=== PATIENT | female | born 1995 | race African-American/Black ===

== ENCOUNTER 2019-07-26 07:13 | Emergency (ER) | payer BC, MEDICAID ==
[~2019-07-26] VITALS: Ht 170.2 cm; Wt 130.0 kg
[~2019-07-26 07:13] MED LIST: ALBU05; PRO AIR
[2019-07-26 07:37] VITALS: BP 140/78
[2019-07-26 08:07] LABS: CLARITY URINE CLOUDY (CLEAR); COLOR URINE RED (YELLOW); KETONES URINE NEGATIVE (NEGATIVE); LEUKOCYTE ESTERASE URINE 1+ (NEGATIVE); NITRITE URINE NEGATIVE (NEGATIVE); OCCULT BLOOD URINE 3+ (NEGATIVE); PH URINE 5.5 (4.5-8.0); PROTEIN URINE 1+ (NEGATIVE); SPECIFIC GRAVITY URINE 1.017 (1.005-1.030)
[2019-07-26] MEDS ORDERED: AZITHROMYCIN 500 MG TABLET PO SCH (08:30)
[2019-07-26] MEDS ORDERED: CEFTRIAXONE SODIUM 250 MG/VIAL IM SCH (08:30)
[2019-07-26] MEDS ORDERED: LIDOCAINE HCL 1% 20ML VIAL (Pyxis) INJ INFIL ONE (08:45)
[2019-07-28 04:06] LABS: NEISSERIA GONORRHOEAE NAA Negative (Negative)
== END 2019-07-26 09:10 | disposition home or self-care (01) ==
LOC: ER 07:13
DX: Z20.2 Contact with and (suspected) exposure to infections with a predominantly sexual mode of transmission (principal); N30.90 Cystitis, unspecified without hematuria; D57.1 Sickle-cell disease without crisis; J45.909 Unspecified asthma, uncomplicated
CPT/HCPCS: 81003; 87491; 87591; 96372; 99283; J0696; J3490

== ENCOUNTER 2019-08-25 06:39 | Emergency (ER) | payer BC ==
[~2019-08-25] VITALS: Ht 167.6 cm; Wt 116.0 kg
[2019-08-25] MEDS ORDERED: SODIUM CHLORIDE 0.9% 1,000 ML IV ONE ×2 (08:01→09:37)
[2019-08-25] MEDS ORDERED: ONDANSETRON HCL 4MG/2ML INJ IV STA (08:01)
[2019-08-25] MEDS ORDERED: MORPHINE SULFATE 4 MG/ML CPJ (NOT FOR IM USE) IV STA ×2 (08:01→09:37)
[2019-08-25] MEDS ORDERED: KETOROLAC 30MG/ML VIAL IV ONE (08:15)
[2019-08-25 08:54] LABS: BASOPHILS % 0.4 % (0.0-2.0); EOSINOPHILS % 3.7 % (0.0-5.0); HEMATOCRIT. 32.1 % (36.0-48.0); HEMOGLOBIN. 10.2 g/dL (12.0-16.0); LYMPHOCYTES % 33.9 % (20.0-50.0); MEAN CORPUSCULAR HEMOGLOBIN 20.7 pg (28.0-32.0); MEAN PLATELET VOLUME 6.9 fl (7.4-10.4); MONOCYTES % 9.5 % (2.0-8.0); NEUTROPHILS % 52.5 % (40.0-76.0); PLATELET 440 x1000/uL (130-400); RED BLOOD CELL COUNT 4.94 mill/uL (4.2-5.4); RED CELL DISTRIBUTION WIDTH 19.7 % (11.6-14.6)
[2019-08-25 08:59] LABS: CHLORIDE 107 mEq/L (98-107)
[2019-08-25 09:03] LABS: INR 1.1; PROTHROMBIN TIME 11.4 sec (9.6-11.0)
[2019-08-25 09:09] LABS: HCG SCREEN NEGATIVE
[2019-08-25 09:11] LABS: CLARITY URINE CLOUDY (CLEAR); COLOR URINE YELLOW (YELLOW); KETONES URINE NEGATIVE (NEGATIVE); LEUKOCYTE ESTERASE URINE 3+ (NEGATIVE); NITRITE URINE NEGATIVE (NEGATIVE); OCCULT BLOOD URINE NEGATIVE (NEGATIVE); PH URINE 5.5 (4.5-8.0); PROTEIN URINE NEGATIVE (NEGATIVE); SPECIFIC GRAVITY URINE 1.019 (1.005-1.030)
[2019-08-25] MEDS ORDERED: POTASSIUM CHLORIDE 20MEQ TABLET SR PO ONE (09:15)
[2019-08-25] MEDS ORDERED: CEFTRIAXONE 1 G PREMIX 50 ML IV ONE (09:30)
[2019-08-25 10:25] LABS: PLATELET ESTIMATE SLIGHTLY INCREASED
[2019-08-25 11:17] VITALS: BP 112/60
== END 2019-08-25 11:18 | disposition home or self-care (01) ==
LOC: ER 06:39
DX: N12 Tubulo-interstitial nephritis, not specified as acute or chronic (principal); D57.00 Hb-SS disease with crisis, unspecified; D50.9 Iron deficiency anemia, unspecified; J45.909 Unspecified asthma, uncomplicated
CPT/HCPCS: 36415; 80053; 81003; 81025; 84703; 85025; 85044; 85610; 87086; 96365; 96375; 96376; 99284; J0696; J1885; J2270; J2405; J7030

== ENCOUNTER 2020-02-11 21:09 | Inpatient (IN) | payer BC ==
[~2020-02-11] VITALS: Ht 170.2 cm; Wt 132.4 kg
[2020-02-11] MEDS ORDERED: ALBUTEROL (0.083%) 2.5MG/3ML NEB HHN STA (23:10)
[2020-02-11] MEDS ORDERED: IPRATROPIUM BROMIDE (0.02%) 0.5MG/2.5ML NEB HHN STA (23:10)
[2020-02-11] MEDS ORDERED: PREDNISONE 20MG TABLET PO STA (23:10)
[2020-02-11] MEDS ORDERED: ACETAMINOPHEN 325MG TABLET PO ONE (23:15)
[2020-02-12] MEDS ORDERED: DEXAMETHASONE 4MG/ML 1ML VIAL IV SCH (00:15)
[2020-02-12] MEDS ORDERED: CEFTRIAXONE 1 G PREMIX 50 ML IV ONE (00:15)
[2020-02-12] MEDS ORDERED: CEFTRIAXONE 1,000 MG in DEXTROSE 5% WATER 50 ML IV SCH (00:30)
[2020-02-12] MEDS ORDERED: CEFTRIAXONE SODIUM 1 G/VIAL ONE (01:13)
[2020-02-12 01:27] LABS: BASOPHILS % 0.2 % (0.0-2.0); HEMATOCRIT. 34.4 % (36.0-48.0); HEMOGLOBIN. 11.2 g/dL (12.0-16.0); LYMPHOCYTES % 18.6 % (20.0-50.0); MEAN CORPUSCULAR HEMOGLOBIN 19.6 pg (28.0-32.0); MEAN CORPUSCULAR VOLUME 60.2 fL (81.0-99.0); MEAN PLATELET VOLUME 8.6 fl (7.4-10.4); MONOCYTES % 7.5 % (2.0-8.0); NEUTROPHILS % 73.7 % (40.0-76.0); PLATELET 410 x1000/uL (130-400); RED BLOOD CELL COUNT 5.72 mill/uL (4.2-5.4); RED CELL DISTRIBUTION WIDTH 20.5 % (11.6-14.6)
[2020-02-12 01:36] LABS: CHLORIDE 101 mEq/L (98-107)
[2020-02-12 02:14] LABS: HCG SCREEN NEGATIVE
[2020-02-12] MEDS ORDERED: ALBUTEROL (0.083%) 2.5MG/3ML NEB HHN SCH (02:23)
[2020-02-12] MEDS ORDERED: IPRATROPIUM BROMIDE (0.02%) 0.5MG/2.5ML NEB HHN SCH (02:23)
[2020-02-12] MEDS ORDERED: MORPHINE SULFATE 4 MG/ML CPJ (NOT FOR IM USE) IV ONE (03:30)
[2020-02-12] MEDS ORDERED: MAGNESIUM/ALUMINUM HYDROXIDE/SIMETHICONE 30ML UDC PO PRN (04:00)
[2020-02-12] MEDS ORDERED: DOCUSATE SODIUM 100MG CAPSULE PO PRN (04:00)
[2020-02-12] MEDS ORDERED: CLONIDINE 0.1MG TABLET PO PRN (04:00)
[2020-02-12] MEDS ORDERED: ONDANSETRON HCL 4MG/2ML INJ IV PRN (04:00)
[2020-02-12] MEDS: GUAIFENESIN 200MG/10ML SUGAR FREE UDC PO PRN ×2 (04:36→14:05)
[2020-02-12] MEDS ORDERED: AZITHROMYCIN 500 MG in DEXT 5% WATER 250 ML IV SCH (05:00)
[2020-02-12 07:00] LABS: INR 1.1; PROTHROMBIN TIME 11.7 sec (9.6-11.0)
[2020-02-12 08:41] LABS: CLARITY URINE TURBID (CLEAR); COLOR URINE YELLOW (YELLOW); KETONES URINE TRACE (NEGATIVE); LEUKOCYTE ESTERASE URINE 1+ (NEGATIVE); NITRITE URINE NEGATIVE (NEGATIVE); OCCULT BLOOD URINE NEGATIVE (NEGATIVE); PROTEIN URINE TRACE (NEGATIVE); SPECIFIC GRAVITY URINE 1.021 (1.005-1.030)
[2020-02-12 08:56] LABS: PLATELET ESTIMATE SLIGHTLY INCREASED
[2020-02-12] MEDS: AMLODIPINE 10MG TABLET PO SCH (09:00)
[2020-02-12] MEDS: ENOXAPARIN 100MG/ML SYR SUBCUT SCH ×2 (09:40→23:00)
[2020-02-12] MEDS: ACETAMINOPHEN 325MG TABLET PO PRN (09:40)
[2020-02-12 16:53] LABS: BG BASE EXCESS 0.7 mmol/L (-2.0-2.0); BG CARBOXYHEMOGLOBIN 0.3 % (0.5-1.5); BG DEOXYHEMOGLOBIN 4.3 % (0.0-5.0); BG FRACTION INSPIRED OXYGEN 99.8; BG HCO3 ACT 25.3 mmol/L (22.0-26.0); BG METHEMOGLOBIN 0.3 % (0.0-1.5); BG OXYGEN SATURATION 95.7 % (92.0-98.5); BG OXYHEMOGLOBIN 95.1 % (94.0-97.0); BG PCO2 40.3 mmHg (35.0-45.0); BG PH 7.415 (7.350-7.450); BG PO2 84.3 mmHg (75.0-100.0); BG SAMPLE SITE RIGHT RADIAL; BG TOTAL HEMOGLOBIN 11.3 g/dL (12.0-18.0); BG VENT MODE MASK - NRB
[2020-02-12] MEDS: DEXAMETHASONE 10 MG/ML VIAL IV SCH (18:30)
[2020-02-12] MEDS: KETOROLAC 15MG/ML VIAL IV PRN (18:31)
[2020-02-12] MEDS ORDERED: CEFTRIAXONE 1 G PREMIX 50 ML IV SCH (21:00)
[2020-02-12] MEDS: ALBUTEROL 6.7GM HFA INHALER ORI SCH (21:06)
[2020-02-12] MEDS: GUAIFENESIN-DM 200MG-20MG/10ML UDC PO PRN (21:15)
[2020-02-13] VITALS (7 sets, daily range): BP systolic 115–128; BP diastolic 73–84
[2020-02-13] MEDS: GUAIFENESIN-DM 200MG-20MG/10ML UDC PO PRN ×3 (01:12→21:14)
[2020-02-13] MEDS: ALBUTEROL 6.7GM HFA INHALER ORI SCH ×4 (05:31→20:08)
[2020-02-13] MEDS ORDERED: AZITHROMYCIN 500 MG in DEXT 5% WATER 250 ML IV SCH (06:00)
[2020-02-13 07:46] LABS: CHLORIDE 100 mEq/L (98-107)
[2020-02-13] MEDS: AZITHROMYCIN 500 MG in DEXT 5% WATER 250 ML IV SCH (09:26)
[2020-02-13] MEDS: ENOXAPARIN 100MG/ML SYR SUBCUT SCH ×2 (09:27→21:00)
[2020-02-13] MEDS: DEXAMETHASONE 10 MG/ML VIAL IV SCH (09:27)
[2020-02-13] MEDS: KETOROLAC 15MG/ML VIAL IV PRN ×2 (09:27→23:59)
[2020-02-13] MEDS: AMLODIPINE 10MG TABLET PO SCH (09:28)
[2020-02-13] MEDS: ACETAMINOPHEN 325MG TABLET PO PRN (14:06)
[2020-02-13] MEDS: CEFTRIAXONE 1,000 MG in DEXTROSE 5% WATER 50 ML IV SCH (21:00)
[2020-02-14 00:26] VITALS: BP 110/70
[2020-02-14 04:00] VITALS: BP 130/83
[2020-02-14] MEDS: ALBUTEROL 6.7GM HFA INHALER ORI SCH ×4 (04:02→22:00)
[2020-02-14] MEDS: KETOROLAC 15MG/ML VIAL IV PRN ×3 (06:55→21:24)
[2020-02-14 08:00] VITALS: BP 110/63
[2020-02-14] MEDS: GUAIFENESIN-DM 200MG-20MG/10ML UDC PO PRN ×4 (08:38→21:24)
[2020-02-14] MEDS: AZITHROMYCIN 500 MG in DEXT 5% WATER 250 ML IV SCH (08:38)
[2020-02-14] MEDS: ENOXAPARIN 100MG/ML SYR SUBCUT SCH (08:38)
[2020-02-14] MEDS: DEXAMETHASONE 10 MG/ML VIAL IV SCH (08:39)
[2020-02-14] MEDS: AMLODIPINE 10MG TABLET PO SCH (08:39)
[2020-02-14 12:00] VITALS: BP 89/64
[2020-02-14 16:00] VITALS: BP 108/68
[2020-02-14] MEDS ORDERED: ENOXAPARIN 150MG/ML SYR SUBCUT SCH (16:52)
[2020-02-14 20:00] VITALS: BP 94/53
[2020-02-14] MEDS: CEFTRIAXONE 1,000 MG in DEXTROSE 5% WATER 50 ML IV SCH (21:20)
[2020-02-14] MEDS: ENOXAPARIN 150MG/ML SYR SUBCUT SCH (21:25)
[2020-02-15] VITALS: BP 134/69
[2020-02-15 04:00] VITALS: BP 107/67
[2020-02-15] MEDS: ALBUTEROL 6.7GM HFA INHALER ORI SCH ×4 (05:39→23:02)
[2020-02-15 07:16] LABS: BASOPHILS % 0.4 % (0.0-2.0); HEMATOCRIT. 30.5 % (36.0-48.0); HEMOGLOBIN. 9.8 g/dL (12.0-16.0); LYMPHOCYTES % 15.5 % (20.0-50.0); MEAN CORPUSCULAR VOLUME 62.1 fL (81.0-99.0); MEAN PLATELET VOLUME 8.6 fl (7.4-10.4); MONOCYTES % 11.8 % (2.0-8.0); NEUTROPHILS % 72.3 % (40.0-76.0); PLATELET 407 x1000/uL (130-400); RED BLOOD CELL COUNT 4.92 mill/uL (4.2-5.4)
[2020-02-15 08:00] VITALS: BP 152/93
[2020-02-15 08:32] LABS: CHLORIDE 100 mEq/L (98-107)
[2020-02-15 09:09] LABS: BG BASE EXCESS 3.6 mmol/L (-2.0-2.0); BG CARBOXYHEMOGLOBIN 0.3 % (0.5-1.5); BG FRACTION INSPIRED OXYGEN 100; BG HCO3 ACT 27.8 mmol/L (22.0-26.0); BG METHEMOGLOBIN 0.2 % (0.0-1.5); BG OXYGEN SATURATION 86.9 % (92.0-98.5); BG OXYHEMOGLOBIN 86.5 % (94.0-97.0); BG PCO2 40.4 mmHg (35.0-45.0); BG PH 7.455 (7.350-7.450); BG SAMPLE SITE RIGHT RADIAL; BG TOTAL HEMOGLOBIN 11.7 g/dL (12.0-18.0); BG VENT MODE MASK - NRB
[2020-02-15] MEDS: DEXAMETHASONE 10 MG/ML VIAL IV SCH (09:50)
[2020-02-15] MEDS: AZITHROMYCIN 500 MG in DEXT 5% WATER 250 ML IV SCH (09:50)
[2020-02-15] MEDS: AMLODIPINE 10MG TABLET PO SCH (09:50)
[2020-02-15] MEDS: KETOROLAC 15MG/ML VIAL IV PRN ×2 (09:51→23:01)
[2020-02-15] MEDS: ENOXAPARIN 150MG/ML SYR SUBCUT SCH ×2 (09:53→21:54)
[2020-02-15] MEDS: GUAIFENESIN-DM 200MG-20MG/10ML UDC PO PRN (10:22)
[2020-02-15 12:00] VITALS: BP 102/61
[2020-02-15 16:00] VITALS: BP 110/56
[2020-02-15] MEDS: PROMETHAZINE/DEXTROMETHORPHAN 6.25-15MG/5ML BOTTLE 120ML PO PRN ×2 (18:42→23:04)
[2020-02-15 20:00] VITALS: BP 117/76
[2020-02-15] MEDS: CEFTRIAXONE 1,000 MG in DEXTROSE 5% WATER 50 ML IV SCH (21:53)
[2020-02-16] VITALS: BP 117/77
[2020-02-16 04:00] VITALS: BP 110/73
[2020-02-16] MEDS: ALBUTEROL 6.7GM HFA INHALER ORI SCH ×4 (04:56→20:34)
[2020-02-16] MEDS: PROMETHAZINE/DEXTROMETHORPHAN 6.25-15MG/5ML BOTTLE 120ML PO PRN ×2 (06:13→12:28)
[2020-02-16 08:00] VITALS: BP 100/55
[2020-02-16] MEDS: AZITHROMYCIN 500 MG in DEXT 5% WATER 250 ML IV SCH (09:42)
[2020-02-16] MEDS: AMLODIPINE 10MG TABLET PO SCH (09:42)
[2020-02-16] MEDS: ENOXAPARIN 150MG/ML SYR SUBCUT SCH ×2 (09:42→20:35)
[2020-02-16] MEDS: DEXAMETHASONE 10 MG/ML VIAL IV SCH (09:43)
[2020-02-16 12:00] VITALS: BP 142/99
[2020-02-16 16:00] VITALS: BP 133/55
[2020-02-16] MEDS: GUAIFENESIN-DM 200MG-20MG/10ML UDC PO PRN ×2 (16:44→21:35)
[2020-02-16 20:00] VITALS: BP 108/71
[2020-02-16] MEDS: CEFTRIAXONE 1,000 MG in DEXTROSE 5% WATER 50 ML IV SCH (20:33)
[2020-02-16] MEDS: KETOROLAC 15MG/ML VIAL IV PRN (23:36)
[2020-02-17] VITALS: BP 111/69
[2020-02-17 04:00] VITALS: BP 105/63
[2020-02-17] MEDS: ALBUTEROL 6.7GM HFA INHALER ORI SCH (04:00)
[2020-02-17 08:00] VITALS: BP 109/62
[2020-02-17 08:19] LABS: HEMATOCRIT. 30.6 % (36.0-48.0); HEMOGLOBIN. 9.6 g/dL (12.0-16.0); MEAN CORPUSCULAR HEMOGLOBIN 19.5 pg (28.0-32.0); MEAN CORPUSCULAR VOLUME 62.3 fL (81.0-99.0); MEAN PLATELET VOLUME 8.5 fl (7.4-10.4); PLATELET 411 x1000/uL (130-400); RED BLOOD CELL COUNT 4.92 mill/uL (4.2-5.4); RED CELL DISTRIBUTION WIDTH 19.9 % (11.6-14.6)
[2020-02-17 08:28] LABS: CHLORIDE 101 mEq/L (98-107)
[2020-02-17] MEDS: GUAIFENESIN-DM 200MG-20MG/10ML UDC PO PRN ×3 (09:18→19:47)
[2020-02-17] MEDS: DEXAMETHASONE 10 MG/ML VIAL IV SCH (09:18)
[2020-02-17] MEDS: ENOXAPARIN 150MG/ML SYR SUBCUT SCH ×2 (09:18→19:47)
[2020-02-17] MEDS: AMLODIPINE 10MG TABLET PO SCH (09:18)
[2020-02-17 12:00] VITALS: BP 112/56
[2020-02-17 13:26] LABS: PLATELET ESTIMATE INCREASED
[2020-02-17 16:00] VITALS: BP 117/70
[2020-02-17 20:00] VITALS: BP 114/66
[2020-02-18] VITALS: BP 109/64
[2020-02-18] MEDS: ACETAMINOPHEN 325MG TABLET PO PRN ×2 (00:59→16:04)
[2020-02-18] MEDS: GUAIFENESIN-DM 200MG-20MG/10ML UDC PO PRN ×4 (00:59→15:51)
[2020-02-18 04:00] VITALS: BP 101/70
[2020-02-18 08:00] VITALS: BP 112/73
[2020-02-18] MEDS: DEXAMETHASONE 10 MG/ML VIAL IV SCH (10:20)
[2020-02-18] MEDS: ENOXAPARIN 150MG/ML SYR SUBCUT SCH ×2 (10:20→21:31)
[2020-02-18] MEDS: AMLODIPINE 10MG TABLET PO SCH (10:21)
[2020-02-18] MEDS: ALBUTEROL 6.7GM HFA INHALER ORI SCH ×3 (10:34→21:32)
[2020-02-18 12:00] VITALS: BP 132/73
[2020-02-18 16:00] VITALS: BP 126/68
[2020-02-18 20:00] VITALS: BP 135/81
[2020-02-18] MEDS: PROMETHAZINE/DEXTROMETHORPHAN 6.25-15MG/5ML BOTTLE 120ML PO PRN (21:32)
[2020-02-19] VITALS: BP 125/82
[2020-02-19] MEDS: GUAIFENESIN-DM 200MG-20MG/10ML UDC PO PRN ×3 (00:19→13:52)
[2020-02-19] MEDS: PROMETHAZINE/DEXTROMETHORPHAN 6.25-15MG/5ML BOTTLE 120ML PO PRN ×2 (03:59→11:16)
[2020-02-19 04:00] VITALS: BP 115/66
[2020-02-19] MEDS: ALBUTEROL 6.7GM HFA INHALER ORI SCH ×2 (04:05→09:19)
[2020-02-19 08:00] VITALS: BP 148/88
[2020-02-19] MEDS: AMLODIPINE 10MG TABLET PO SCH (09:11)
[2020-02-19] MEDS: DEXAMETHASONE 10 MG/ML VIAL IV SCH (09:11)
[2020-02-19] MEDS: ENOXAPARIN 150MG/ML SYR SUBCUT SCH (09:14)
[2020-02-19 12:00] VITALS: BP 107/65
[2020-02-19 15:00] VITALS: BP 107/65
== END 2020-02-19 16:45 | disposition home or self-care (01) | DRG 871 ==
LOC: ER 21:09 → 7WST 02-12 02:18 → EDBEDREQSVC 02-12 04:42 → ENRESERV 02-12 22:04 → 7WST 02-13 00:31
PROVIDERS: ADMIT Hospitalist; ATTEND Hospitalist
PROC: XW13325 Transfusion of Convalescent Plasma (Nonautologous) into Peripheral Vein, Percutaneous Approach, New Technology Group 5 (ICD-10-PCS; principal; 2020-02-14)
DX: A41.89 Other specified sepsis (principal); J12.89 Other viral pneumonia; J96.01 Acute respiratory failure with hypoxia; U07.1 COVID-19; Z68.42 Body mass index [BMI] 45.0-49.9, adult; B97.89 Other viral agents as the cause of diseases classified elsewhere; D57.1 Sickle-cell disease without crisis; E66.01 Morbid (severe) obesity due to excess calories; F12.90 Cannabis use, unspecified, uncomplicated; J45.909 Unspecified asthma, uncomplicated; R65.20 Severe sepsis without septic shock; D72.810 Lymphocytopenia; Z79.899 Other long term (current) drug therapy
CPT/HCPCS: 36415; 36600; 71045; 80048; 80053; 80076; 81003; 82375; 82728; 82805; 83605; 83615; 84145; 84484; 84703; 85025; 85379; 86140; 86850; 86870; 86900; 87635; 93005; 93970; 96365; 99285; 99291; J0456; J0696; J1100; J1650; J1885; J2270; J7040; J7060; J7512; P9017; U0003